=== PATIENT | male | born 1955 | race Caucasian/White ===

== ENCOUNTER 2016-12-22 11:11 | Observation (INO) ==
--- NOTE | 2016-12-22 11:30 | Emergency Department Note ---
Disposition Clinical Impression: Acute kidney injury Chest pain Qualifiers: Chest pain type: unspecified Qualified Code(s): R07.9 - Chest pain, unspecified Disposition: Admitted As Inpatient Condition: Fair Referrals: Porfirio Mann DO [Primary Care Provider] - Forms: ED Satisfaction Letter Time of Disposition: 12:28 Chest Pain HPI - General Chief Complaint: ED Chest Pain Stated Complaint: CP Time Seen by Provider: 12/22/16 11:21 Source: patient, family Mode of arrival: wheelchair Limitations: no limitations Vital Signs Reviewed: Yes Nursing Notes Reviewed: Yes - History of Present Illness HPI Narrative: Patient reports "sharp" intermittent chest pains that radiate to his arm and neck. Symptoms started yesterday at rest. Symptoms worse with exertion. He was unable to complete exertional activities yesterday. 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 Pt complaint: chest pain Onset (ago): day(s) Duration: intermittent Onset: during rest, during exertion Pain Location: right chest Severity: severe Severity scale (1-10): 0 Quality: sharp Pain Radiation: RUE, neck Improves with: nothing Worsens with: exertion Treatments prior to arrival chest pain: aspirin - Related Data On Oral Contraceptives: No Home Medications Medication Instructions Recorded Confirmed Aspirin 81 mg PO DAILY 07/16/15 08/24/16 Clopidogrel [Plavix] 75 mg PO DAILY 07/16/15 08/24/16 Gabapentin [Neurontin] 300 mg PO DAILY 07/16/15 08/24/16 Lisinopril [Zestril] 20 mg PO DAILY 07/16/15 08/24/16 Lovastatin [Altoprev] 40 mg PO HS 07/16/15 08/24/16 Magnesium 250 mg PO DAILY 07/16/15 08/24/16 Metoprolol [Lopressor] 25 mg PO DAILY 07/16/15 08/24/16 Sitagliptin Phos/Metformin HCl 1 mg PO BID 07/16/15 08/24/16 [Janumet 50-500 mg Tablet] Febuxostat [Uloric] 40 mg PO DAILY 08/24/16 08/24/16 Nitroglycerin [Nitrostat] 0.4 mg SL PRN 08/24/16 [place]-3 Fatty Acids [Fish Oil] 1,200 mg PO DAILY 08/24/16 08/24/16 Previous Rx's Medication Instructions Recorded Amoxicillin/Clavulanate [Augmentin] 875 mg PO BIDWM #20 tablet 08/24/16 Allergies Allergy/AdvReac Type Severity Reaction Status Date / Time niacin AdvReac Rash Verified 12/22/16 11:17 [From Niaspan Extended-Release] All systems ED: reviewed and negative except as stated. Constitutional: Reports: as per HPI Eyes: Reports: as per HPI ENT ED: Reports: as per HPI Cardiovascular: Reports: chest pain Respiratory: Reports: as per HPI Gastrointestinal: Reports: as per HPI Genitourinary: Reports: as per HPI Musculoskeletal: Reports: neck pain, other (Arm pain) Integumentary: Reports: as per HPI Neurological: Reports: as per HPI Psychiatric: Reports: as per HPI Endocrine: Reports: as per HPI Hematological/Lymphatic: Reports: as per HPI Allergic/Immunologic: Reports: as per HPI Chest Pain PMH - Past Medical History Medical history: Reports: coronary artery disease, diabetes, GERD, hyperlipidemia, hypertension, kidney stones Surgical history: Reports: other Psychiatric history: Reports: no psych history - Social History Smoking Status: Never smoker Alcohol use: Reports: none Drug use: Reports: none Physical Exam - General Limitations: no limitations General appearance: alert, in no apparent distress - Head Head exam: atraumatic - Eye Eye exam: Present: normal appearance - ENT ENT exam: normal exam - Neck Neck exam: Present: normal inspection, full ROM - Chest Chest inspection: Present: normal inspection, symmetric chest wall rise - Respiratory Respiratory exam: Present: normal lung sounds bilaterally. Absent: respiratory distress - Cardiovascular Cardiovascular exam: Present: regular rate, normal rhythm, normal heart sounds - Abdominal Exam Abdominal exam: Present: soft, Non-Tender - Rectal Exam Rectal exam: Present: deferred - Extremities Exam Extremities exam: Present: normal inspection - Neurological Exam Neurological exam: Present: alert, oriented X3, CN II-XII intact - Psychiatric Psychiatric exam: Present: normal affect, normal mood - Skin Skin exam: Present: warm, dry, intact Course Course Narrative: Patient presents with chest pain. He is pain-free now at the time of my exam. ECG without acute dynamic changes. History of coronary artery disease Vital Signs Temperature 98.1 F 12/22/16 11:13 Pulse Rate 85 12/22/16 11:13 Respiratory Rate 20 12/22/16 11:13 Blood Pressure 118/66 12/22/16 11:13 O2 Sat by Pulse Oximetry 96 12/22/16 11:13 Temperature 98.1 F 12/22/16 11:13 Pulse Rate 85 12/22/16 11:13 Respiratory Rate 20 12/22/16 11:13 Blood Pressure 118/66 12/22/16 11:13 O2 Sat by Pulse Oximetry 96 12/22/16 11:13 Oxygen Delivery Oxygen Delivery Room Air Chest Pain - Lab Data Lab results reviewed: Yes I reviewed the patient's lab results. Result diagrams: 12/22/16 11:54 12/22/16 11:54 Lab Results 12/22/16 12/22/16 12/22/16 Range/Units 11:54 11:54 11:54 WBC 8.6 (4.3-11.1) K/mcL RBC 4.64 (4.19-5.50) M/mcL Hgb 13.7 (12.9-16.9) g/dL Hct 41.7 (37.5-50.1) % MCV 89.9 (83.0-100.0) fL MCH 29.5 (28.0-33.3) pg MCHC 32.9 (31.6-35.5) g/dL RDW 13.6 (11.5-14.5) % Plt Count 182 (140-400) K/mcL MPV 10.8 (9.4-12.4) fL Immature Gran % 0.2 (0-4) % Seg Neutrophils % 63.8 % Lymphocytes % 25.0 % Monocytes % 8.5 % Eosinophils % 2.0 % Basophils % 0.5 % Neutrophils # 5.5 (1.6-8.9) K/mcL Lymphocytes # 2.2 (0.6-4.6) K/mcL Monocytes # 0.7 (0.0-1.3) K/mcL Eosinophils # 0.2 (0.0-0.6) K/mcL Basophils # 0.0 (0.0-0.2) K/mcL PT 11.5 (9.4-12.1) Seconds INR 1.1 Sodium 139 (136-145) mEq/L Potassium 4.1 (3.5-4.5) mEq/L Chloride 102 (98-109) mEq/L Carbon Dioxide 29 (19-29) mEq/L BUN 28 H (8-26) mg/dL Creatinine 1.34 H (0.72-1.25) mg/dL Est GFR ( Amer) > 60 (> 60) Est GFR (Non-Af Amer) 54 L (> 60) BUN/Creatinine Ratio 21 (6-26) Glucose 115 H (70-99) mg/dL Calculated Osmolality 294 (280-300) Calcium 10.5 (8.6-10.8) mg/dL Total Bilirubin 0.7 (0.2-1.2) mg/dL AST 24 (5-34) Units/L ALT 35 (0-55) Units/L Alkaline Phosphatase 57 (38-126) Units/L Troponin I (0-0.03) ng/mL Serum Total Protein 7.4 (6.0-8.3) g/dL Albumin 4.1 (3.5-5.0) g/dL Globulin 3.3 (2.4-3.5) g/dL Albumin/Globulin Ratio 1.2 (1.1-2.2) 12/22/16 Range/Units 11:54 WBC (4.3-11.1) K/mcL RBC (4.19-5.50) M/mcL Hgb (12.9-16.9) g/dL Hct (37.5-50.1) % MCV (83.0-100.0) fL MCH (28.0-33.3) pg MCHC (31.6-35.5) g/dL RDW (11.5-14.5) % Plt Count (140-400) K/mcL MPV (9.4-12.4) fL Immature Gran % (0-4) % Seg Neutrophils % % Lymphocytes % % Monocytes % % Eosinophils % % Basophils % % Neutrophils # (1.6-8.9) K/mcL Lymphocytes # (0.6-4.6) K/mcL Monocytes # (0.0-1.3) K/mcL Eosinophils # (0.0-0.6) K/mcL Basophils # (0.0-0.2) K/mcL PT (9.4-12.1) Seconds INR Sodium (136-145) mEq/L Potassium (3.5-4.5) mEq/L Chloride (98-109) mEq/L Carbon Dioxide (19-29) mEq/L BUN (8-26) mg/dL Creatinine (0.72-1.25) mg/dL Est GFR ( Amer) (> 60) Est GFR (Non-Af Amer) (> 60) BUN/Creatinine Ratio (6-26) Glucose (70-99) mg/dL Calculated Osmolality (280-300) Calcium (8.6-10.8) mg/dL Total Bilirubin (0.2-1.2) mg/dL AST (5-34) Units/L ALT (0-55) Units/L Alkaline Phosphatase (38-126) Units/L Troponin I 0.01 (0-0.03) ng/mL Serum Total Protein (6.0-8.3) g/dL Albumin (3.5-5.0) g/dL Globulin (2.4-3.5) g/dL Albumin/Globulin Ratio (1.1-2.2) - Radiology Data Radiology results reviewed: Yes I reviewed the patient's radiology results. - EKG Data EKG attestation: Yes I reviewed and interpreted this EKG. EKG results narrative: Sinus rhythm rate 83 164 QRS 150 QT/QTC 361/400 right bundle branch block. Study compared to previous dated 01/30/16
[2016-12-22 12:01] LABS: Basophils % 0.5 %; Eosinophils # 0.2 K/mcL (0.0-0.6); Hematocrit 41.7 % (37.5-50.1); Hemoglobin 13.7 g/dL (12.9-16.9); Immature Granulocytes % 0.2 % (0-4); Lymphocytes # 2.2 K/mcL (0.6-4.6); Mean Corpuscular HGB Conc 32.9 g/dL (31.6-35.5); Mean Corpuscular Hemoglobin 29.5 pg (28.0-33.3); Mean Corpuscular Volume 89.9 fL (83.0-100.0); Mean Platelet Volume 10.8 fL (9.4-12.4); Monocytes # 0.7 K/mcL (0.0-1.3); Monocytes % 8.5 %; Neutrophils # 5.5 K/mcL (1.6-8.9); Platelet Count 182 K/mcL (140-400); Red Blood Count 4.64 M/mcL (4.19-5.50); Red Cell Distribution Width 13.6 % (11.5-14.5); Segmented Neutrophils % 63.8 %
[2016-12-22 12:06] LABS: INR 1.1; Prothrombin Time 11.5 Seconds (9.4-12.1)
[2016-12-22 12:14] LABS: Alanine Aminotransferase 35 Units/L (0-55); Albumin 4.1 g/dL (3.5-5.0); Albumin/Globulin Ratio 1.2 (1.1-2.2); Alkaline Phosphatase 57 Units/L (38-126); Aspartate Amino Transferase 24 Units/L (5-34); BUN/Creatinine Ratio 21 (6-26); Bilirubin,Total 0.7 mg/dL (0.2-1.2); Blood Urea Nitrogen 28 mg/dL (8-26); Calcium 10.5 mg/dL (8.6-10.8); Carbon Dioxide 29 mEq/L (19-29); Chloride 102 mEq/L (98-109); Globulin 3.3 g/dL (2.4-3.5); Glucose 115 mg/dL (70-99); Osmolality,Calculated 294 (280-300); Potassium 4.1 mEq/L (3.5-4.5); Sodium 139 mEq/L (136-145); Total Protein 7.4 g/dL (6.0-8.3); eGFR For African Americans > 60 (> 60); eGFR For Non-African Americans 54 (> 60)
--- NOTE | 2016-12-22 17:16 | Internal Med History&Physical ---
Date of Encounter: 12/22/16 Time of Encounter: 17:13 Assessment and Plan (1) Chest pain Current visit: Yes Status: Acute Atypical chest pain. The patient with known coronary artery disease and associated comorbidities. We will place patient in observation. Trend troponin. Monitor on telemetry. Obtain stress test and echocardiogram in the morning. If any of the test results are positive or the patient rules in we will consult cardiology. If he rules out he has an appointment with cardiology in one week. Qualifiers: Chest pain type: precordial pain Qualified Code(s): R07.2 - Precordial pain (2) Coronary artery disease Current visit: Yes Status: Acute Continue with aspirin and Plavix. Qualifiers: Coronary Disease-Associated Artery/Lesion type: [place] artery [place] vs. transplanted heart: [place] heart Associated angina: without angina Qualified Code(s): I25.10 - Atherosclerotic heart disease of [place] coronary artery without angina pectoris (3) Type 2 diabetes mellitus Current visit: Yes Status: Acute Hold Janumet. Start insulin sliding scale. Qualifiers: 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 complication status: without complication 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 residential insulin use: without continuous churn buttermaker use Qualified Code(s): E11.9 - Type 2 diabetes mellitus without complications (4) Essential hypertension Current visit: Yes Status: Acute Continue home meds. (5) Hyperlipidemia Current visit: Yes Status: Acute Qualifiers: Hyperlipidemia type: unspecified Qualified Code(s): E78.5 - Hyperlipidemia , unspecified (6) Elevated serum creatinine Current visit: Yes Status: Acute Per record review his serum creatinine was 1.1 6 months ago, currently 1.3. Might be in the context of progressive diabetic nephropathy versus worsening renal failure. We will avoid nephrotoxins. We will provide IV fluid hydration and recheck creatinine in the morning. Internal Medicine - H&P: HPI Chief complaint: Chest pain Admitted From: Emergency Dept Plans for Post Hospital Care: Home History of present illness: Mr. Hurd is a 61 year old male with past medical history significant for hypertension, hyperlipidemia, coronary artery disease status post stent placement, type 2 diabetes, BPH and degenerative joint disease presented to the hospital sent from PCPs office for evaluation of chest pain. He has been having chest pain on and off for several months. He describes this as midsternal, sharp, moderate intensity pain radiating to the upper back and right shoulder, occurring at rest, with no aggravating or alleviating factors. He states the pain is similar to the pain he had 8 years ago when he had his stent placed. A 10 point review of systems was negative except as above. Past medical history as described above Family history positive for colon cancer in the patient's mother and diabetes in patient's father and siblings. Social history: He has an active lifestyle. Denies tobacco alcohol and drug use. Past Med Surg Social Fam HX - Past Medical History Medical history: coronary artery disease, diabetes, GERD, hyperlipidemia, hypertension, kidney stones Psychiatric history: no psych history - Past Surgical History Surgical History: other - Social History Smoking Status: Never smoker Smokeless Tobacco Status: No Alcohol use: none Drug use: none Internal Medicine - H&P: Meds Aspirin 81 mg PO DAILY 07/16/15 [History] Clopidogrel [Plavix] 75 mg PO DAILY 07/16/15 [History] Gabapentin [Neurontin] 300 mg PO TID 07/16/15 [History] Lovastatin [Altoprev] 40 mg PO HS 07/16/15 [History] Magnesium 250 mg PO DAILY 07/16/15 [History] Metoprolol [Lopressor] 25 mg PO DAILY 07/16/15 [History] Febuxostat [Uloric] 40 mg PO DAILY 08/24/16 [History] Nitroglycerin [Nitrostat] 0.4 mg SL Q5M PRN 08/24/16 [History] [place]-3 Fatty Acids [Fish Oil] 1,200 mg PO DAILY 08/24/16 [History] Lisinopril [Zestril] 40 mg PO DAILY 12/22/16 [History] Sitagliptin Phos/Metformin HCl [Janumet 50-1,000 mg Tablet] 1 each PO BID [History] Tamsulosin HCl [Flomax] 0.4 mg PO DAILY 12/22/16 [History] 3 Allergy/AdvReac Type Severity Reaction Status Date / Time niacin AdvReac Rash Verified 12/22/16 11:17 [From Niaspan Extended-Release] All Systems PM: A 10-system review of systems was performed and is negative for pertinent findings except as documented above in the HPI. - Constitutional Vitals: Temp Pulse Resp BP Pulse Ox 98.2 F 63 15 127/74 93 12/22/16 15:13 12/22/16 15:13 12/22/16 15:13 12/22/16 15:13 12/22/16 15:13 General appearance: Present: A&O X 3 - Eye Eye exam: Present: PERRL, conjuntiva pink, sclera anicteric Pupils: Present: PERRL - Respiratory Respiratory exam: Present: CTAB. Absent: accessory muscle use, rales, rhonchi, wheezes - Cardiovascular Cardiovascular exam: Present: RRR, +S1, +S2. Absent: diastolic murmur, gallop, rubs, systolic murmur - GI/Abdominal GI/Abdominal exam: Present: normal bowel sounds, soft, no peritoneal signs. Absent: distended, tenderness - Extremities Exam Extremities exam: Present: warm, radial pulses palpable and symmetrical. Absent : calf tenderness, cyanotic, pedal edema - Skin Skin exam: Present: dry, intact Internal Med - H&P Results - Labs CBC & Chem 7: 12/22/16 11:54 12/22/16 11:54 - EKG Data -: EKG Interpreted by Myself EKG shows normal: sinus rhythm (83 BPM, old right bundle branch block) - EKG Data Prior EKG available for review: yes When compared to previous EKG: there is no significant change
[2016-12-22] MEDS ORDERED: Acetaminophen 325 MG TABLET PO PRN (17:24)
[2016-12-22] MEDS ORDERED: Naloxone 0.4 MG/ML INJ IVP PRN (17:24)
[2016-12-22] MEDS ORDERED: Nitroglycerin 0.4 MG TAB.SUBL SL PRN (17:26)
[2016-12-22] MEDS ORDERED: 0.9 % Sodium Chloride 1,000 ML IVC SCH (17:30)
[2016-12-22] MEDS ORDERED: D5% in Water 1,000 ML IVC PRN (17:33)
[2016-12-22] MEDS ORDERED: *HR* Dextrose 50 % in Water (Syg) 50 ML SYRINGE IVP PRN (17:33)
[2016-12-22] MEDS ORDERED: Dextrose Gel 15 GM PO PRN ×2 (17:33)
[2016-12-22] MEDS ORDERED: Insulin LISPRO 300 UNITS/3 ML VIAL SQ SCH ×2 (21:00)
[2016-12-22] MEDS: Gabapentin 300 MG CAPSULE PO SCH (22:05)
[2016-12-22] MEDS: Lisinopril 20 MG TABLET PO SCH (22:06)
[2016-12-22] MEDS: Insulin DETEMIR 100 UNIT/ML X5UNITS SQ SCH (23:43)
[2016-12-23 04:44] LABS: Basophils % 0.4 %; Eosinophils # 0.2 K/mcL (0.0-0.6); Eosinophils % 2.7 %; Hemoglobin 13.2 g/dL (12.9-16.9); Immature Granulocytes % 0.1 % (0-4); Lymphocytes # 2.1 K/mcL (0.6-4.6); Lymphocytes % 28.6 %; Mean Corpuscular Hemoglobin 29.9 pg (28.0-33.3); Mean Corpuscular Volume 90.5 fL (83.0-100.0); Mean Platelet Volume 10.8 fL (9.4-12.4); Monocytes # 0.7 K/mcL (0.0-1.3); Monocytes % 9.2 %; Neutrophils # 4.4 K/mcL (1.6-8.9); Platelet Count 179 K/mcL (140-400); Red Blood Count 4.42 M/mcL (4.19-5.50); Red Cell Distribution Width 13.4 % (11.5-14.5)
[2016-12-23 05:02] LABS: BUN/Creatinine Ratio 22 (6-26); Blood Urea Nitrogen 22 mg/dL (8-26); Calcium 9.5 mg/dL (8.6-10.8); Carbon Dioxide 27 mEq/L (19-29); Chloride 106 mEq/L (98-109); Chol/HDL Ratio 4.8 (0-4.9); Cholesterol 140 mg/dL (< 200); Glucose 112 mg/dL (70-99); HDL Cholesterol 29 mg/dL (40-59); LDL Cholesterol,Calculated 59 mg/dL (0-99); Magnesium 1.7 mg/dL (1.6-2.6); Osmolality,Calculated 294 (280-300); Potassium 4.3 mEq/L (3.5-4.5); Sodium 140 mEq/L (136-145); Triglycerides 261 mg/dL (< 150); eGFR For African Americans > 60 (> 60); eGFR For Non-African Americans > 60 (> 60)
[2016-12-23] MEDS ORDERED: Regadenoson 0.4 MG/5 ML SYRINGE IVP ONE (06:15)
--- NOTE | 2016-12-23 07:17 | Internal Med Progress Note ---
Date of Encounter: 12/23/16 - Constitutional Vitals: Temp Pulse Resp BP Pulse Ox 98.1 F 63 16 114/60 95 12/23/16 06:41 12/23/16 06:41 12/23/16 06:41 12/23/16 06:41 12/23/16 06:41 General appearance: Present: A&O X 3 Internal Medicine: Result - Labs CBC & Chem 7: 12/23/16 04:11 12/23/16 04:11 Labs: Short CBC 12/23/16 Range/Units 04:11 WBC 7.4 (4.3-11.1) K/mcL Hgb 13.2 (12.9-16.9) g/dL Hct 40.0 (37.5-50.1) % Plt Count 179 (140-400) K/mcL Neutrophils # 4.4 (1.6-8.9) K/mcL BMP 12/23/16 04:11 Sodium 140 Potassium 4.3 Chloride 106 Carbon Dioxide 27 BUN 22 Creatinine 1.01 Glucose 112 H Calcium 9.5 Cardiac Enzymes 12/23/16 Range/Units 04:11 Troponin I 0.00 (0-0.03) ng/mL - ABG Interpretation ABG results: PT/INR, D-dimer PT 11.5 Seconds (9.4-12.1) 12/22/16 11:54 Consult Discharge Plan - Plan Referrals: Porfirio Mann DO [Primary Care Provider] -
[2016-12-23] MEDS ORDERED: (Febuxostat [Uloric] 40 MG) PO SCH (09:00)
[2016-12-23] MEDS ORDERED: Magnesium Oxide 400 MG TABLET PO SCH (09:00)
[2016-12-23] MEDS ORDERED: Aspirin 81 MG TAB.CHEW PO SCH (09:00)
[2016-12-23] MEDS: Insulin LISPRO 300 UNITS/3 ML VIAL SQ SCH ×4 (10:24→12:06)
[2016-12-23] MEDS: Lisinopril 20 MG TABLET PO SCH (10:30)
[2016-12-23] MEDS: Gabapentin 300 MG CAPSULE PO SCH ×2 (10:30→15:08)
[2016-12-23] MEDS: Insulin DETEMIR 100 UNIT/ML X5UNITS SQ SCH (10:31)
[2016-12-23 11:32] VITALS: BP 121/67
--- NOTE | 2016-12-23 12:38 | Electrocardiograph Report ---
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
--- NOTE | 2016-12-23 13:25 | Nuclear Medicine Stress Report ---
Regadenoson Nuclear Stress Name: Barney Hurd Date of Study: 12/23/2016 Date: 1955 Ht: 67.0 in Medical Record#: [id number] Age: 61 Wt: 217.0 lb Gender: Male Order #: [id number] Location: [facility] Room: 2N8 Supervising Provider: Yadira Muse CNP Reading Physician: Magdiel Rea MD, [facility] Ordering Physician: Lev Beasley MD Primary Care Physician: Porfirio Mann DO Stress Technologist: Jose Angel Mcdonald [employer], [facility] Staff Appraiser: Khanh Ching Indications: Chest Pain Impression: The patient demonstrated a mild hypotensive blood pressure response to regadenoson. BP returned to baseline in recovery. Gated LVEF = 63%. Perfusion imaging was negative for ischemia or infarct. History: Hypertension Diabetes Hypercholesteremia Prior PCI Stress Test Summary: Stress Test Type: Pharmacologic Regadenoson 0.4mg/5ml given IV Baseline Information: Initial Heart Rate: 70 Blood Pressure: 108/72 Stress Information: Test Terminated Due to (primary): As per protocol Maximum Blood Pressure: 86/54 Maximum Heart Rate: 84 Percent Maximum Heart Rate Achieved: 54 Double Product: 7224 Symptoms: Shortness of breath, Nausea Nuclear Summary: SPECT myocardial perfusion imaging using Tc99m Sestamibi given intravenously was performed at rest and following cardiac stress testing. The resting images were obtained following initial dose of 11.6 mCi. Following stress an additional dose of 30.4 mCi was given at peak exercise or 30 seconds post regadenoson infusion. Findings: Stress Note * Resting ECG demonstrated sinus rhythm with RBBB. * No baseline arrhythmias were noted. * Patient had no chest pain during stress. * Rare PVCs noted during stress. * No significant ECG changes with regadenoson. Hemodynamic responses * The patient demonstrated a mild hypotensive blood pressure response to regadenoson. BP returned to baseline in recovery. Study Quality * Study quality is average. Gated EF % * Gated LVEF = 63%. Left Ventricle * The left ventricle is not dilated. * Normal Segmental Perfusion in rest. Inferior artifact noted. * Normal segmental perfusion in stress. TID * No evidence of transient ischemic dilatation. Updated by Magdiel Rea MD, [facility] on 12/23/2016 1:19:20 PM electronically signed on 12/23/2016 1:19:43 PM with status of Final
--- NOTE | 2016-12-23 13:42 | Discharge Summary ---
<Magdiel Menon - Last Filed: 12/23/16 13:40> Date of Encounter: 12/23/16 Time of Encounter: 10:00 - Discharge Diagnosis (1) Chest pain Priority: Primary Status: Acute Qualifiers: Chest pain type: precordial pain Qualified Code(s): R07.2 - Precordial pain (2) Coronary artery disease Priority: Secondary Status: Chronic Qualifiers: Coronary Disease-Associated Artery/Lesion type: [place] artery [place] vs. transplanted heart: [place] heart Associated angina: without angina Qualified Code(s): I25.10 - Atherosclerotic heart disease of [place] coronary artery without angina pectoris (3) Elevated serum creatinine Priority: Secondary Status: Acute (4) Essential hypertension Priority: Secondary Status: Chronic (5) Hyperlipidemia Priority: Secondary Status: Chronic Qualifiers: Hyperlipidemia type: unspecified Qualified Code(s): E78.5 - Hyperlipidemia , unspecified (6) Type 2 diabetes mellitus Priority: Secondary Status: Chronic Qualifiers: 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 complication status: without complication 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 terminal 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 insulin use: without group home use Qualified Code(s): E11.9 - Type 2 diabetes mellitus without complications - Discharge Medications Home Medications: Aspirin 81 mg PO DAILY 07/16/15 [History] Clopidogrel [Plavix] 75 mg PO DAILY 07/16/15 [History] Gabapentin [Neurontin] 300 mg PO TID 07/16/15 [History] Lovastatin [Altoprev] 40 mg PO HS 07/16/15 [History] Magnesium 250 mg PO DAILY 07/16/15 [History] Metoprolol [Lopressor] 25 mg PO DAILY 07/16/15 [History] Febuxostat [Uloric] 40 mg PO DAILY 08/24/16 [History] Nitroglycerin [Nitrostat] 0.4 mg SL Q5M PRN 08/24/16 [History] [place]-3 Fatty Acids [Fish Oil] 1,200 mg PO DAILY 08/24/16 [History] Lisinopril [Zestril] 40 mg PO DAILY 12/22/16 [History] Sitagliptin Phos/Metformin HCl [Janumet 50-1,000 mg Tablet] 1 each PO BID [History] Tamsulosin HCl [Flomax] 0.4 mg PO DAILY 12/22/16 [History] Allergies/Adverse Reactions: 3 Allergy/AdvReac Type Severity Reaction Status Date / Time niacin AdvReac Rash Verified 12/22/16 11:17 [From Niaspan Extended-Release] Procedures/tests Complete & Pending: Procedures Performed prior 72 hours Category Date Time Status NM rae perf SPECT multi [NM] Routine Exams 12/22/16 17:31 Taken EV echocardiogram Routine Y 12/22/16 17:31 Completed SP pharm nuclear stress Routine Y 12/23/16 07:10 Completed Date of admission: 12/22/16 13:32 Primary care physician: Porfirio Mann DO Discharging clinician: Shawn Emerson Anticipated date of discharge: 12/23/16 - Patient Status Disposition: Home, Self-Care Condition: Good Functional capacity at discharge: independent ambulation Overall status at discharge: patient is back to baseline - Discharge Instructions Instructions: Chest Pain (DC) Follow Up With: Porfirio Mann DO [Primary Care Provider] - Additional Instructions: The patient should follow up with PCP in 1-2 weeks, and should follow up with cardiology as directed by their office. - Diet and Activity Activity: increase activity as tolerated Diet: diabetic diet, low salt diet Hospital course: Mr. Hurd is a 61 year old male with history of CAD, DM, GERD, hyperlipidemia , hypertension, kidney stones who presented to the ED at the instruction of his primary care provider. While at an appointment with his PCP, he mentioned that he has been having chest pains off and on for the past several months. The pain is generally retrosternal or right sided, radiates to his right arm or right neck and sometimes to his right back. He says that this pain lasts for a few seconds and then goes away. Nothing seems to make the pain worse or causes the pain to occur, that is not worse with exertion, and is generally gone by the time he could take nitroglycerin. He says the pain was similar to when he had had stents placed before, however the difference this time and said it was coming and going and approximately 5 seconds. He was admitted to the hospital for evaluation of his atypical chest pain. Troponins were trended and negative , vital signs remained stable, patient did not experience chest pains throughout the duration of his stay. The patient did have an elevated creatinine of 1.34 on arrival, which decreased to 1.01 over the course of his stay. The patient did undergo nuclear stress testing which demonstrated no transient ischemia. The patient will be discharged from the hospital with instructions follow up with cardiology in a timeframe at their discretion. - Time Spent with Patient Total time spent providing and/or coordinating discharge services: - Constitutional Vitals: Temp Pulse Resp BP Pulse Ox 97.7 F 54 16 121/67 95 12/23/16 11:27 12/23/16 11:27 12/23/16 11:27 12/23/16 11:27 12/23/16 11:27 General appearance: Present: A&O X 3 - Head Head exam: Present: atraumatic, normocephalic - Eye Eye exam: Present: PERRL, conjuntiva pink, sclera anicteric Pupils: Present: PERRL - Neck Neck exam general surgery: Present: supple, trachea midline. Absent: lymphadenopathy - Respiratory Respiratory exam: Present: CTAB. Absent: accessory muscle use, rales, rhonchi, wheezes - Cardiovascular Cardiovascular exam: Present: RRR, +S1, +S2. Absent: diastolic murmur, gallop, rubs, systolic murmur - GI/Abdominal GI/Abdominal exam: Present: normal bowel sounds, soft, no peritoneal signs. Absent: distended, tenderness - Extremities Exam Extremities exam: Present: warm, radial pulses palpable and symmetrical. Absent : calf tenderness, cyanotic, pedal edema - Neurological Exam Neurological exam: Present: CN II-XII intact, oriented X3, no focal deficits. Absent: pronater drift, facial droop, speech deficit - Skin Skin exam: Present: dry, intact <Idania,Shawn P - Last Filed: 12/23/16 18:56> Date of Encounter: 12/23/16 Procedures/tests Complete & Pending: Procedures Performed prior 72 hours Category Date Time Status NM rae perf SPECT multi [NM] Routine Exams 12/22/16 17:31 Taken EV echocardiogram Routine Y 12/22/16 17:31 Completed SP pharm nuclear stress Routine Y 12/23/16 07:10 Completed Date of admission: 12/22/16 13:32 Primary care physician: Porfirio Mann DO [facility] course: Mr. Hurd is a 61 year old male - Time Spent with Patient Total time spent providing and/or coordinating discharge services: - Constitutional Vitals: Temp Pulse Resp BP Pulse Ox 97.7 F 54 16 121/67 95 12/23/16 11:27 12/23/16 11:27 12/23/16 11:27 12/23/16 11:27 12/23/16 11:27 - Attending Attestation I examined this patient and my medical decision-making was reviewed with the Resident Physician. I agree with the documented findings, disposition and treatment plan as described except to the extent set forth below. Patient admitted with chest pain. stress test: Negative for ischemia/perfusion defect. The gentleman has a follow-up appointment with cardiology in near future. Recommended patient to follow-up with the cardiology appointment.
[2016-12-23] MEDS ORDERED: FLUARIX QUAD 2017-18 36MOS UP/PF 0.5 ML SYRINGE IM ONE (14:52)
[2016-12-23 17:02] LABS: Hemoglobin A1C 6.6 %
== END 2016-12-23 15:21 | disposition home or self-care (01) ==
LOC: EMEROO 11:11 → 2NENU 11:11
PROVIDERS: ADMIT Internal Medicine; ATTEND Internal Medicine